=== PATIENT | male | born 1960 | race Caucasian/White ===

== ENCOUNTER 2017-08-16 08:33 | Emergency (ER) | payer BC, SELFPAY ==
--- NOTE | 2017-08-16 08:54 | DI.RAD.S_ITS ---
PROCEDURE: XR HAND RT MIN 3V INDICATIONS: Thumb injury with pain TECHNIQUE: 3 views of the hand(s) acquired. COMPARISON: None. FINDINGS: Bones: A comminuted, articulating fracture involves the base of the first proximal phalanx. There is dorsal angulation and displacement deformities. Old healed fracture deformity midshaft first metacarpal. 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 Soft tissues: No suspicious soft tissue calcifications. IMPRESSION: 1. Acute, comminuted and articulating fracture base of the first proximal phalanx. Dictated by: Raymond Parra M.D. on 08/16/2017 at 9:18 Approved by: Raymodn Parra M.D. on 08/16/2017 at 9:21
[2017-08-16 08:56] VITALS: BP 157/86; PULSE 88; RESP 16; O2SAT 98
--- NOTE | 2017-08-16 09:02 | ED.UPPEXIN ---
HPI - Extremity Injury (Upper) General Chief Complaint: Extremity Injury, Upper Stated Complaint: SNAPPED THUMB ON RIGHT HAND Time Seen by Provider: 08/16/17 08:54 Source: patient Mode of arrival: ambulatory Limitations: no limitations History of Present Illness HPI narrative: Patient here for evaluation of right thumb injury. 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 Patient states that he was golfing this morning and hit the right thumb which has limited mobility at baseline on the golf club and felt his thumb come back. Had immediate pain afterwards. Came here for evaluation Related Data Previous Rx's Medication Instructions Recorded tramadol 0 mg PO Q6H PRN PRN #30 tab 12/03/15 hydrocodone-acetaminophen [[place]] 1 tab PO Q4-6H PRN #14 tab 08/16/17 Allergies Allergy/AdvReac Type Severity Reaction Status Date / Time No Known Drug Allergies Allergy Verified 08/16/17 08:56 Review of Systems Constitutional Denies chills, Denies fever(s), Denies lethargy and Denies weakness Musculoskeletal Comments: Right thumb injury Integumentary/Breasts Denies pruritus, Denies erythema, Denies rash and Denies wounds Neurologic Denies weakness Comments: No change in sensation to right upper extremity Hematologic/Lymphatic Denies easy bruising [facility] Surgical History Status post arthroscopy Social History Smoking Status: Current some day smoker Exam Initial Vital Signs Initial Vital Signs: Vital Signs Pulse Rate 88 08/16/17 08:56 Respiratory Rate 16 08/16/17 08:56 Blood Pressure 157/86 H 08/16/17 08:56 Pulse Oximetry 98 08/16/17 08:56 Cardio Pulses: radial pulses present Other: Capillary refill less than 2 sec right upper extremity Skin Other: Many healed old surgical wounds and skin grafts the patient states is not new. Does have redness at the MCP joint of the right thumb however patient states that this is not new it has been like that since the skin graft surgery. Neuro Other: No change in sensation to the right upper extremity per patient report Extrem Other: Multiple skin grafts right upper extremity. No change in range of motion of the right elbow and right wrist per patient. Does have limited range of motion at the MCP joint of the right thumb and no range of motion of the IP joint of the right thumb. Patient states that this is not new. Is missing the index finger of his right finger which is not new. Has no change in the range of motion or sensations of the 3rd 4th and 5th digits of the right hand per patient. Procedures Orthopedic Splinting/Casting Injury #1: Side: right Upper Extremity Injury Location: finger (Right thumb) Upper Extremity Immobilizer: thumb spica Additional Comments: Splint placed by myself a position of comfort Course Orders Ordered: ED Orders 08/16/17 08:54 XR hand RT min 3V Stat Discontinued Medications Hydrocodone Bitart/Acetaminophen ([place] 5/325) 1 tab PO NOW ONE Stop: 08/16/17 09:13 Vital Signs - 8 hr 08/16/17 08:56 Pulse Rate 88 Respiratory Rate 16 Blood Pressure 157/86 H Pulse Oximetry 98 MDM - Extremity Injury (Upper) Imaging Data Thumb x-ray: Radiologist's impression: PROCEDURE: XR HAND RT MIN 3V INDICATIONS: Thumb injury with pain TECHNIQUE: 3 views of the hand(s) acquired. COMPARISON: None. FINDINGS: Bones: A comminuted, articulating fracture involves the base of the first proximal phalanx. There is dorsal angulation and displacement deformities. Old healed fracture deformity midshaft first metacarpal. 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 Soft tissues: No suspicious soft tissue calcifications. IMPRESSION: 1. Acute, comminuted and articulating fracture base of the first proximal phalanx. Dictated by: Raymond Parra M.D. on 08/16/2017 at 9:18 MDM Narrative Medical decision making narrative: No change in sensation per the patient. Has a comminuted fracture at the MCP joint of the right thumb. Thumb spica splint was placed at position of comfort secondary to his baseline limited mobility. Patient was given care instructions. He was given the phone number for follow-up. He was given return precautions. He expressed understanding and agreement with plan Discharge Plan Departure Patient Disposition: Home, Self-Care Clinical Impression: Fracture of thumb Instructions: DI for Finger Fracture, How to Take Care of Your Splint Activity Restrictions/Additional Instructions: Take all her medications as instructed. Keep your splint on and keep it clean and dry treat it like a cast. Call the [facility] at [phone] for a follow-up. Return to the emergency department for any new or worsening symptoms Prescriptions: New hydrocodone-acetaminophen [[place]] 5-325 mg tablet 1 tab PO Q4-6H PRN (Reason: pain) Qty: 14 RF: 0 No Action tramadol 50 MG tablet PO Q6H PRN PRNQty: 30 RF: 3 Stand Alone Forms: Work/School Restrictions
[2017-08-16 10:35] VITALS: BP 148/87; PULSE 70; RESP 18; TEMP 36.8; O2SAT 98
== END 2017-08-16 10:35 | disposition home or self-care (01) ==
PROVIDERS: Emergency Provider Emergency Medicine; PCP Family Medicine
DX: S62.501A Fracture of unspecified phalanx of right thumb, initial encounter for closed fracture (principal)
CPT/HCPCS: 29130; 73130; 99282; 99283

== ENCOUNTER 2018-01-02 07:46 | Day surgery (SDC) | payer BC, SELFPAY ==
[2018-01-02] VITALS (9 sets, daily range): BP systolic 101–140; BP diastolic 51–73; PULSE 73–87; RESP 11–15; TEMP 36.2–37.1; O2SAT 94–97; BMI 30.4
[2018-01-02] MEDS: LACTATED RINGERS 1,000 ML 42 ML IV (08:27)
--- NOTE | 2018-01-02 09:03 | PM.PREOP ---
Pre-operative Note Interval Note Pre-op Check: Yes History & Physical Reviewed by Physician Changes: No
[2018-01-02] MEDS: CEFAZOLIN 2 GM/100 ML FROZ.PIGGY IV (09:30)
[2018-01-02] MEDS: MIDAZOLAM 2 MG/2 ML VIAL IV (09:40)
--- NOTE | 2018-01-02 10:12 | SUR.OPER ---
Supine on padded OR bed, head on pillow, arms secured on padded arm boards at <90 degrees abduction, legs uncrossed, safety belt at thigh, tape over blanket over lower legs.
[2018-01-02] MEDS: BUPIVACAINE 0.5% W/ EPI (PF) VIAL 30 ML INJ (10:20)
[2018-01-02] MEDS: HYDROMORPHONE 2 MG INJ 0.5 MG IV ×2 (11:45→11:50)
[2018-01-02] MEDS: fentaNYL 100 MCG/2 ML INJ 50 MCG IV ×3 (11:53→12:22)
--- NOTE | 2018-01-02 11:53 | P.OP_ITS ---
Operative Date/Time/Diagnoses Date of procedure: 01/02/18 Time of procedure: 09:29 Pre-op diagnosis: Left wrist ulnar impaction. Left DRUJ arthritis. Post-op diagnosis: same Procedure & Clinicians Procedure: Left ulnar shortening osteotomy. Left evelin resection arthroplasty to the DRUJ Same procedure as scheduled: Yes Indications: Ulnar impaction, DRUJ arthritis Surgeon: Kei Salguero Family Dinner Service Specialist: Jenna Ferguson Anesthesia Type: General Operative Notes Findings: Patient was significantly ulnar positive causing quite a bit of ulnar impaction. Also previous deformity to the distal radius. Significant arthritic changes along the ulnar head. Sigmoid notch free of any major cartilage loss. Closure Type: primary Specimen(s): none sent Implants & Drains: Ulnar shortening osteotomy plate, Trimed Applied: implant(s) Estimated Blood Loss (mL): 20 Blood products transfused: none Tourniquet time (min): 90 Procedure in detail: On date of service, patient was met in the holding area and the operative site was signed and witnessed by the OR staff. Surgeries once again discussed with the patient remaining question concerns and answered fully. Patient was taken back to the operating theater placed in the operative supine position. Great care taken to ensure that all bony prominences appropriately padded. Well-padded tourniquet was placed up along the upper extremity and a time-out was performed verifying patient's name procedure and operative site. Left arm was prepped and draped in normal sterile fashion. Esmarch was used to exsanguinate the limb and the tourniquet turned up to 250 mm of mercury. Extensile incision was made starting distal to the ulnar head following the ulnar shaft. Ten blade was used to incise through skin and fascial tissue. Deep knife was then used to perform sharp dissection in [place] in interval between ECU and FCU. This gave us good visualization of the ulnar shaft. Once the ulnar shaft was exposed, ulnar shortening osteotomy plate was placed and held provisionally with bone reduction forceps. Distal screws were placed securing the plate distally. With the plate secured distally the osteotomy guides were placed and a 5 mm cut was performed. K-wire was placed allowing us to place the reduction forceps in the osteotomy site was reduced. While the osteotomy site was reduced, 1 of the proximal screws was placed securing the plate. The lag screw was placed across the osteotomy site. The rest of the screws were placed providing secure fixation of the ulnar osteotomy. X-rays were obtained verifying plate and screw length as well as osteotomy compression. We then turned our attention to the ulnar head. A retinacular flap was made starting at the 5th extensor compartment. The ECU sheath was not involved. Next another capsular flap was made attached ulnarly giving us visualization yes n of the ulnar head and the sigmoid notch. There was significant arthritic changes to the ulnar head. Sigmoid notch had much milder changes. Using a combination of the saw blade as well as the rongeur a evelin resection of the ulnar head was performed. The ulnar styloid in the TFCC attachments were left intact. Next, the wrist was turned over to the volar aspect. Small incision was made at the distal wrist crease. Blunt dissection was performed given his good visualization of the palmaris longus. Tendon stripper was then used to harvest the palmaris longus. Once this was done, the wound was irrigated and then closed. Next, the harvested tendon was then placed between the evelin resection of the ulnar head and the sigmoid notch for a tendon interposition. The capsular flap that was made previously was reattached but more volarly to add to the interposition. It the rest of the dorsal capsule was closed providing good stability to the ulnar head. The wound was copiously irrigated in the wound along the shaft was closed in a layered fashion. The arm was then cleaned dried and dressed. Patient was placed into a long-arm splint. Patient was taken to the PACU in stable condition. Complications: none Condition: stable Disposition: PACU Plan for aftercare: Patient will be in a long-arm splint for 2 weeks. This will be converted to a long-arm cast for another 2 weeks. At that point patient will be then converted to a short-arm cast for the final 2 weeks.
[2018-01-02] MEDS: OXYCODONE/ACETAMINOPHEN 5/325 TABLET 1 TAB PO ×2 (12:08→12:59)
== END 2018-01-02 13:29 | disposition home or self-care (01) ==
PROVIDERS: PCP Family Medicine; Visit Provider Orthopaedic Surgery
PROC: (CPT 25320; principal; 2018-01-02 09:15)
DX: M25.832 Other specified joint disorders, left wrist (principal); M19.032 Primary osteoarthritis, left wrist; Z87.891 Personal history of nicotine dependence
CPT/HCPCS: 25390; 20924; 25332; J0360; J0690; J1170; J2250; J2405; J2704; J3010

== ENCOUNTER → 2019-09-18 08:22 | Outpatient (CLI) | payer BC, SELFPAY ==
[2019-09-19 00:24] LABS: COVID19 Sendout Not Detected (Not Detect)
== END ==
PROVIDERS: PCP Family Medicine; Visit Provider Nurse Practitioner
DX: Z01.812 Encounter for preprocedural laboratory examination (principal)
CPT/HCPCS: 87635

== ENCOUNTER 2019-09-21 06:52 | Day surgery (SDC) | payer OTHER, SELFPAY ==
[2019-09-17 08:13] VITALS: BMI 35.4
[2019-09-21] VITALS (8 sets, daily range): BP systolic 122–161; BP diastolic 55–87; PULSE 58–69; RESP 11–21; TEMP 36–36.3; O2SAT 93–98; BMI 32.2
--- NOTE | 2019-09-21 | DI.RAD.S_ITS ---
PROCEDURE: XR ANKLE LT MIN 3V INDICATIONS: EXCISION DISTAL FIBULA W/ CHRONIC STRESS REACTION TECHNIQUE: 3 views of the ankle were acquired. COMPARISON: [facility], , ANKLE 3 VIEWS LEFT, 09/01/2015, 14:55. FINDINGS: Spot fluoroscopic intraoperative images demonstrating surgical probe with the tip at the level of the lateral malleolus and talar dome. Dictated by: Reno Colorado M.D. on 09/21/2019 at 10:42 Approved by: Reno Colorado M.D. on 09/21/2019 at 10:43
[2019-09-21] MEDS: LACTATED RINGERS 1,000 ML 42 ML IV (07:36)
--- NOTE | 2019-09-21 07:39 | PM.PREOP ---
Pre-operative Note COVID-19 COVID-19 status: Negative Interval Note History & Physical reviewed/Exam performed by Physician: Yes Changes to H&P: No
[2019-09-21] MEDS: CEFAZOLIN 2 GM/100 ML FROZ.PIGGY IV (07:45)
--- NOTE | 2019-09-21 08:11 | SUR.OPER ---
Supine on padded OR bed, head on pillow, arms secured on padded arm boards at <90 degrees abduction, extra support for left arm, legs uncrossed, safety belt at thigh, tape over blanket over nonoperative leg.
[2019-09-21] MEDS: BUPIVACAINE 0.25% W/ EPI 30 ML VIAL INJ (08:36)
[2019-09-21] MEDS: fentaNYL 100 MCG/2 ML INJ IV (09:03)
--- NOTE | 2019-09-21 09:06 | PM.OP.1 ---
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 CPT code 71418 Same procedure as scheduled: Yes Indications: Patient is a 59-year-old male with a chronic stress reaction left distal fibula with increased bone marrow edema on repeat MRI scan 1 year apart. He has failed conservative treatment with rest activity modifications bracing. He has been indicated for fixation of this across structure reaction with bone substitute cement. Risks benefits and alternatives of procedure were discussed with the patient in detail and elected to proceed. The risks and benefits of the procedure have been discussed with the patient even opportunity to ask questions. The risks of surgery include but are not limited to infection, malunion, nonunion, persistence of pain, damage to nerves and blood vessels, posttraumatic arthritis, DVT, PE, cardiopulmonary complications and . The patient expressed a thorough understanding of the risks and benefits of surgery and has elected to proceed. Consent was signed. Surgeon: Jeanne Rodriguez Click Yes if Unassisted: Yes Anesthesia Type: General and Local Operative Notes Findings: Bone marrow edema distal left fibula. Area was isolated on the MRI and with intraoperative fluoroscopy to try angulate the location of the bone cement injection. Approximately 1.4 cc of Accu fill calcium phosphate bone substitute cement was injected using an 11 gauge side portal cannula. Approximately half of this with the side portals directed distal and then half with the portals directed proximal. Closure Type: primary Specimen(s): none sent Prosthetic devices, grafts, tissues, transplants, or devices: Theresa Accu fill Estimated Blood Loss (mL): 0 Blood products transfused: none Tourniquet time (min): 0 Procedure in detail: Patient was seen in the preoperative area the site of surgery was marked informed consent confirmed. Patient was brought back to the operating room by the anesthesia team placed supine on operative table. Anesthetic was administered. The left lower extremity was prepped and draped in the standard sterile fashion all bony prominences were well padded. An SCD was placed on the contralateral leg. Formal time-out procedure was performed confirming the patient's side and site of surgery Mr. harrison of appropriate preoperative antibiotics. All were in agreement. Attention was turned to the left lower extremity. The C-arm was brought in and the location of the bone marrow lesion of the distal fibula was marked out for entry site in AP and lateral planes a coordinated with unknown location on the MRI which was of an available in the operating room. Next a small skin incision was made at the entry site. The 11 gauge side portal cannula was then advanced a deep enough to encompass all 3 sides slots. The Accu fill calcium phosphate was mixed then approximately 1.4 cc was injected. The 1st half was injected with the portals directed distally then the 2nd half with the portals directed proximally. The appropriate time was allowed for cement hardening then the trocar was removed. Intraoperative fluoroscopy was used to verify the blush within the bone and no extra of the cement into the joint or soft tissues. The small incision was then cleaned and irrigated and closed with a single nylon suture. 6 cc of local anesthetic with 0.25% Marcaine and epinephrine was injected into the skin to help with local anesthetic. A Xeroform and Tegaderm dressing was placed followed by an Bahman wrap in the boot. Patient was awoken from anesthesia and taken to recovery room in good condition. There no immediate complications from this procedure. Complications: none Post-operative Condition: stable Disposition: PACU Plan for aftercare: Weightbear as tolerated left lower extremity. Has boot and crutches to use as needed. Keep incision site clean and dry. May come out of the boot for range of motion. May wean out of boot as tolerated.
[2019-09-21] MEDS: KETOROLAC 30 MG/ML VIAL IV (09:11)
[2019-09-21] MEDS: HYDROCODONE/ACET 5/325 TABLET 1 TAB PO (09:20)
== END 2019-09-21 10:07 | disposition home or self-care (01) ==
PROVIDERS: PCP Family Medicine; Referring Provider Orthopaedic Surgery Foot and Ankle Surgery; Visit Provider Orthopaedic Surgery Foot and Ankle Surgery
PROC: (CPT 27899; principal; 2019-09-21 07:45)
DX: M84.3 Stress fracture (principal); M19.079 Primary osteoarthritis, unspecified ankle and foot; R60.9 Edema, unspecified
CPT/HCPCS: 27899; 73610; 76000; J0690; J1885; J2250; J3010

== ENCOUNTER → 2022-01-29 11:17 | Outpatient (CLI) | payer OTHER, SELFPAY ==
[2022-01-29 11:56] LABS: Add Manual Diff / Slide Review NO; Basophils Absolute Auto 0 /uL (0-100); Basophils Percent Auto 0.5 % (0-2); Eosinophils Absolute Auto 100 /uL (0-450); Eosinophils Percent Auto 1.8 % (2-4); Hematocrit 44.3 % (41-53); Hemoglobin 14.9 g/dL (13.5-17.5); Lymphocytes Absolute Auto 1000 /uL (1100-4500); Lymphocytes Percent Auto 17.5 % (25-40); Mean Corpuscular HGB Conc 33.6 % (30-36); Mean Corpuscular Hemoglobin 28.8 PG (26-34); Mean Corpuscular Volume 85.9 fL (80-100); Monocytes Absolute Auto 400 /uL (0-900); Monocytes Percent Auto 6.9 % (3-14); Neutrophils Absolute Auto 4300 /uL (1500-7000); Neutrophils Percent Auto 73.3 % (50-75); Platelet Count 250 X10^3/uL (150-400); Red Blood Cell Count 5.16 X10^6/uL (4.5-5.9); Red Cell Distribution Width 13.4 % (11.6-14.8); White Blood Cell Count 5.9 X10^3/uL (4.5-11.0)
[2022-01-29 12:06] LABS: Alanine Aminotransferase 28 IU/L (<50); Albumin 4.4 g/dL (3.5-5.0); Albumin Globulin Ratio 1.4 (1.0-2.8); Alkaline Phosphatase 83 U/L (38-126); Aspartate Aminotransferase 25 IU/L (17-59); BUN Creatinine Ratio 16.5 (6-22); Bilirubin Total 0.6 mg/dL (0.2-1.3); Blood Urea Nitrogen 13 mg/dL (9-20); Calcium 9.5 mg/dL (8.4-10.2); Carbon Dioxide 24 mmol/L (22-32); Chloride 101 mmol/L (98-107); Cholesterol 192 mg/dL (140-199); Estimated Glomerular Filt Rate > 60 mL/min (>60); Globulin 3.1 g/dL (1.7-4.1); Glucose 107 mg/dL (80-110); HDL Cholesterol 57 mg/dL (40-60); HEMOLYSIS < 15 (0-50); LDL Cholesterol Calculated 122 mg/dL (<100); Potassium 4.2 mmol/L (3.4-5.1); Sodium 137 mmol/L (137-145); Total Protein 7.5 g/dL (6.3-8.2); Triglycerides 64 mg/dL (35-150)
[2022-01-29 12:35] LABS: Prostate Specific Antigen Scrn 3.51 ng/mL (0.1-4.0)
== END ==
PROVIDERS: PCP Family Medicine; Referring Provider Family Medicine; Visit Provider Family Medicine
DX: Z00.00 Encounter for general adult medical examination without abnormal findings (principal); Z12.5 Encounter for screening for malignant neoplasm of prostate
CPT/HCPCS: 36415; 80053; 80061; 85025; G0103

== ENCOUNTER → 2022-02-03 09:24 | Outpatient (CLI) | payer OTHER, SELFPAY ==
--- NOTE | 2022-02-03 09:25 | DI.ECHO.S_ITS ---
[place]---------+ [facility] +---------+ : : [address] : : : : [id number] : : : : Phone: [phone]+ Echocardiogram Report + + :Name: NABIL CRUZ Study Date: 02/03/2022 Height: 67.5 in: :[facility] ReadingLocation: Weight: 201 lb : : Gender: Male BSA: 2.0 m2 : :: 1960 Age: 61 yrs : :Reason For Study: NEW HEART MURMUR : :Ordering Physician: JOSE FRANCISCO, : :DANIELLE Performed By: Luz Maria Goodwin : :Referring: DANIELLE FELTON : + + Interpretation Summary The ejection fraction is estimated to be 40-45%. There is mild global hypokinesis of the left ventricle. The right ventricle is mildly dilated. The aortic valve is moderately calcified. The peak aortic velocity is 2.5 m/sec. There is mild to moderate aortic regurgitation. The ascending aorta is mild-moderately enlarged. Procedure: A two-dimensional transthoracic echocardiogram with color flow and Doppler was performed. The study quality was technically adequate. The patient had an echocardiogram, but there is no comparison study available. The patient was in sinus bradycardia with heart rates between 58-64 bpm during the exam. Left Ventricle: The left ventricle is normal in size. There is mild concentric left ventricular hypertrophy. The ejection fraction is estimated to be 40-45%. There is mild global hypokinesis of the left ventricle. Right Ventricle: The right ventricle is mildly dilated. The right ventricular systolic function is normal. Atria: The left atrial size is normal. Right atrial size is normal. There is no Doppler evidence for an interatrial shunt. Mitral Valve: The mitral valve is normal in structure and function. There is mild mitral annular calcification. There is trace mitral regurgitation. Aortic Valve: The aortic valve is moderately calcified. There is discrete nodular thickening of the left coronary cusp. The peak aortic velocity is 2.5 m/sec. The aortic valve mean gradient is 14 mmHg. The calculated aortic valve area is 1.7 cm2. There is mild to moderate aortic regurgitation. Tricuspid Valve: The tricuspid valve is normal in structure and function. There is trace tricuspid regurgitation. Pulmonic Valve: The pulmonic valve leaflets are thin and pliable; valve motion is normal. There is mild pulmonic regurgitation. Great Vessels: The aortic root is normal size. The ascending aorta is mild- moderately enlarged. The IVC is of normal diameter and collapses greater than 50% with a sniff. This suggests a low right atrial pressure of 3 mm Hg. Pericardium/ Pleura There is no pericardial effusion. There is no pleural effusion. MMode/2D Measurements & Calculations LVIDd: 4.6 cm LVOT diam: 2.3 cm LVIDs: 3.0 cm Ao root diam: 3.7 cm FS: 34.3 % asc Aorta Diam: 4.3 cm EPSS: 0.81 cm Ao Arch Diam (Prox Trans): 3.3 cm IVSd: 1.1 cm LVPWd: 1.1 cm LV kelly. diameter/BSA (cm/m^2): 2.2 LV sys. diameter/BSA (cm/m^2): 1.5 LA A2 area: 22.5 cm2 RA long axis: 5.1 cm LA A4 area: 20.6 cm2 RA area: 19.0 cm2 LA length (vol): 6.2 cm RA vol: 60.0 ml LA vol: 64.0 ml RA : 29.5 ml/m2 LA vol index: 31.4 ml/m2 IVC diam: 1.1 cm RVD1 (basal): 4.4 cm RVD2 (mid): 3.4 cm TAPSE: 2.5 cm Doppler Measurements & Calculations Ao V2 max: 246.0 cm/sec LVOT Max Gerardo: 99.4 cm/sec Ao V2 mean: 163.1 cm/sec LV V1 max P.0 mmHg Ao max P.2 mmHg LV V1 VTI: 22.9 cm Ao mean P.6 mmHg LILI(I,D): 1.8 cm2 Ao V2 VTI: 54.5 cm LILI(V,D): 1.7 cm2 sev ratio: 0.42 LILI indexed to BSA (cm^2/m^2): 0.87 AI P1/2t: 581.4 msec AI dec slope: 237.4 cm/sec2 MV E max gerardo: 60.4 cm/sec PA V2 max: 85.0 cm/sec MV A max gerardo: 67.4 cm/sec PA V2 mean: 59.3 cm/sec MV E/A: 0.90 PA mean P.6 mmHg Med Peak E' Gerardo: 7.2 cm/sec PA pr(Accel): 39.6 mmHg E/E' med: 8.4 Lat Peak E' Gerardo: 10.7 cm/sec E/E' lat: 5.6 E/e' average: 7.0 MV dec time: 0.26 sec SV(LVOT): 96.7 ml Reading Physician:02:31 PM
== END ==
PROVIDERS: PCP Family Medicine; Referring Provider Family Medicine; Visit Provider Family Medicine
DX: I08.0 Rheumatic disorders of both mitral and aortic valves (principal); I77.89 Other specified disorders of arteries and arterioles; R01.1 Cardiac murmur, unspecified
CPT/HCPCS: 93306

== ENCOUNTER → 2022-02-16 07:32 | Outpatient (CLI) | payer OTHER, SELFPAY ==
--- NOTE | 2022-02-16 07:34 | DI.US.S_ITS ---
PROCEDURE: US ABD AORTA ANEURYSM SCREEN INDICATIONS: FAMILY HISTORY AAA TECHNIQUE: Real time scanning was performed of the aorta and iliac arteries, with image documentation. COMPARISON: None. FINDINGS: Aorta: Proximal aortic diameter measures 2.3 cm. Mid-aorta measures 2.1 cm. Distal aortic diameter is 1.9 cm. Iliac arteries: Right common iliac artery measures 1.1 cm. Left common iliac artery measures 1.0 cm. IMPRESSION: No abdominal aortic ectasia or aneurysmal dilatation. Dictated by: Sherrell Cardenas M.D. on 02/16/2022 at 11:15 Approved by: Sherrell Cardenas M.D. on 02/16/2022 at 11:15
== END ==
PROVIDERS: PCP Family Medicine; Referring Provider Family Medicine; Visit Provider Family Medicine
DX: Z82.49 Family history of ischemic heart disease and other diseases of the circulatory system (principal); Z13.6 Encounter for screening for cardiovascular disorders
CPT/HCPCS: 76706

== ENCOUNTER → 2023-04-21 08:35 | Outpatient (CLI) | payer OTHER, SELFPAY ==
[2023-04-21 10:04] LABS: Alanine Aminotransferase 28 IU/L (<50); Albumin 4.1 g/dL (3.5-5.0); Albumin Globulin Ratio 1.4 (1.0-2.8); Alkaline Phosphatase 74 U/L (38-126); Aspartate Aminotransferase 26 IU/L (17-59); BUN Creatinine Ratio 17.4 (6-22); Bilirubin Total 0.9 mg/dL (0.2-1.3); Blood Urea Nitrogen 15 mg/dL (9-20); Calcium 9.7 mg/dL (8.4-10.2); Carbon Dioxide 27 mmol/L (22-32); Chloride 104 mmol/L (98-107); Estimated Glomerular Filt Rate > 60 mL/min (>60); Globulin 2.9 g/dL (1.7-4.1); Glucose 92 mg/dL (80-110); HEMOLYSIS < 15 (0-50); Potassium 4.2 mmol/L (3.4-5.1); Sodium 138 mmol/L (137-145)
[2023-04-21 10:30] LABS: Prostate Specific Antigen 3.46 ng/mL (0.10-4.00)
[2023-04-21 12:09] LABS: Urine Volume 10mL (spun)
[2023-04-21 12:21] LABS: Appearance Urine UA CLEAR; Bilirubin Urine UA NEGATIVE (NEGATIVE); Color Urine UA YELLOW; Glucose Urine UA NEGATIVE (Negative); Ketones Urine UA NEGATIVE (NEGATIVE); Leukocyte Esterase Urine UA NEGATIVE (NEGATIVE); Nitrite Urine UA NEGATIVE (Negative); Occult Blood Urine UA NEGATIVE (Negative); Protein Urine UA NEGATIVE (Negative); Specific Gravity Urine UA 1.025 (1.000-1.035); Urobilinogen Urine UA 0.2 E.U./dL (0.2); pH Urine UA 5.5 (4.5-8.0)
[2023-04-21 12:27] LABS: Bacteria Urine None Seen; Culture Indicated Urine Cult Not Indicated; RBC Urine None Seen (0-5/HPF); Squamous Epithelial Cell Urine None Seen (0-5/HPF); WBC Urine None Seen (0-5/HPF)
== END ==
PROVIDERS: PCP Family Medicine; Referring Provider Family Medicine; Visit Provider Family Medicine
DX: N40.1 Benign prostatic hyperplasia with lower urinary tract symptoms (principal); R35.1 Nocturia; I10 Essential (primary) hypertension; R01.1 Cardiac murmur, unspecified
CPT/HCPCS: 36415; 80053; 81001; 84153

== ENCOUNTER → 2023-04-25 10:52 | Outpatient (CLI) | payer OTHER, SELFPAY ==
--- NOTE | 2023-04-25 10:53 | DI.RAD.S_ITS ---
PROCEDURE: XR HIP W PEL IF DONE JESSIE MIN 4V INDICATIONS: Progressive atraumatic bilateral lower back and hip pain TECHNIQUE: AP pelvis with lateral view(s) of the bilateral hip(s). COMPARISON: [facility], , HIP 2V LEFT, 09/03/2014, 16:45. FINDINGS: Bones: No fractures or dislocations. Pelvic ring appears intact. No suspicious bony lesions. Moderate bilateral joint space narrowing with subchondral sclerosis present. No remodeling the femoral head. Pelvic ring intact Soft tissues: The visualized bowel gas pattern is normal. No suspicious soft tissue calcifications. IMPRESSION: Moderate bilateral hip osteoarthritis Approved by: Presley Blue M.D. on 04/25/2023 at 19:30
== END ==
PROVIDERS: PCP Family Medicine; Referring Provider Family Medicine; Visit Provider Family Medicine
DX: S39.012A Strain of muscle, fascia and tendon of lower back, initial encounter (principal); M16.0 Bilateral primary osteoarthritis of hip; M25.551 Pain in right hip; M25.552 Pain in left hip
CPT/HCPCS: 73522